=== PATIENT | male | born 1985 | race Caucasian/White ===

== ENCOUNTER 2020-07-03 07:54 | Emergency (ER) | payer BC ==
[~2020-07-03] VITALS: Ht 182.9 cm; Wt 104.3 kg
--- NOTE | 2020-07-03 09:22 | Emergency Department Note ---
History of Present Illnes History of Present Illness Chief Complaint: Abdominal Complaints History of Present Illness This is a 34 year old male Chief Complaint Comment Reports that since 2100 last night he has had abdominal cramping and tightness with nausea and diarrhea, denies vomiting. . Historian: Patient Arrival Mode: Car Onset (how long ago): day(s) (11) Location: periumbilical Quality: cramping Radiation: Denies non-radiation, Denies back, Denies neck, Denies extremity, Denies abdomen, Denies periumbilical, Denies flank, Denies proximal, Denies distal, Denies other Severity: moderate Onset quality: gradual Duration (how long): day(s) (1) Timing of current episode: intermittent Progression: waxing and waning Chronicity: new Context: Denies recent illness, Denies recent surgery, Denies recent immobilization, Denies recent travel, Denies trauma/injury, Denies new medications, Denies hx of DVT/PE, Denies non-compliance w/ medications, Denies other Relieving factors: none Exacerbating factors: none Associated symptoms: Reports denies other symptoms, Reports nausea/vomiting; Denies confusion, Denies chest pain, Denies cough, Denies diaphoresis, Denies fever/chills, Denies headaches, Denies loss of appetite, Denies malaise, Denies rash, Denies seizure, Denies shortness of breath, Denies syncope, Denies weakness, Denies other Treatments prior to arrival: none Past Medical/Family History Physician Review I have reviewed the patient's past medical and family history. Any updates have been documented here. Past Medical History Recent Fever: No Clinical Suspicion of Infectio: No New/Unexplained Change in Ment: No Past Medical History: Hypertension, GERD Past Surgical History: None Social History Smoking Cessation: Never Smoker Counseling Performed: No Alcohol Use: Occasional Any Illegal Drug Use: No Physically hurt or threatened: No Other Any Pre-Existing Lines (PICC,: No Review of Systems Review of Systems Constitutional: Reports no symptoms EENTM: Reports no symptoms Cardiovascular: Reports no symptoms Respiratory: Reports no symptoms Gastrointestinal: Reports as per HPI Genitourinary: Reports no symptoms Musculoskeletal: Reports no symptoms Integumentary: Reports no symptoms Neurological: Reports no symptoms Psychological: Reports no symptoms Endocrine: Reports no symptoms Hematological/Lymphatic: Reports no symptoms Physical Exam Related Data Allergies: Coded Allergies: No Known Allergies (Unverified , 07/03/20) Triage Vital Signs Vital Signs Date Time Temp Pulse Resp B/P (MAP) Pulse Ox O2 Delivery O2 Flow Rate FiO2 07/03/20 08:05 98.0 95 18 130/76 100 Room Air Vital signs reviewed: Yes Physical Exam CONSTITUTIONAL Constitutional: Present well-developed, Present well-nourished HENT HENT: Present normocephalic, Present atraumatic, Present oropharynx clear/moist, Present nose normal HENT L/R: Present left ext ear normal, Present right ext ear normal EYES Eyes: Reports PERRL, Reports conjunctivae normal NECK Neck: Present ROM normal PULMONARY Pulmonary: Present effort normal, Present breath sounds normal CARDIOVASCULAR Cardiovascular: Present regular rhythm, Present heart sounds normal, Present capillary refill normal, Present normal rate GASTROINTESTINAL Abdominal: Present soft, Present bowel sounds normal, Present tender (periumbilical) GENITOURINARY Genitourinary: Present exam deferred SKIN Skin: Present warm, Present dry MUSCULOSKELETAL Musculoskeletal: Present ROM normal NEUROLOGICAL Neurological: Present alert, Present oriented x 3, Present no gross motor or sensory deficits PSYCHOLOGICAL Psychological: Present mood/affect normal, Present judgement normal Results Laboratory Lab results reviewed: Yes Imaging Imaging results reviewed: Yes Assessment & Plan Medical Decision Making MDM appendicitis gastroenteritis Reassessment Reassessment better Assessment & Plan Final Impression: (1) Abdominal pain, acute, generalized (2) Vomiting (3) Diarrhea Depart Disposition: HOME, SELF-CARE Last Vital Signs Date Time Temp Pulse Resp B/P (MAP) Pulse Ox O2 Delivery O2 Flow Rate FiO2 07/03/20 08:05 98.0 95 18 130/76 100 Room Air PATRIZIA RAMIREZ MD Jul 03, 2020 09:22
--- NOTE | 2020-07-03 09:33 | Diagnostic Imaging Report ---
CT of the abdomen and pelvis, without contrast. History: Abdominal pain. Comparison: None available. Technique: Multidetector CT scanning of the abdomen and pelvis was performed from the level of the lung bases to the inferior pubic rami without the use of contrast material. Coronal and sagittal multiplanar reformations were obtained. RADIATION DOSE: Total DLP: 778.23 mGy*cm Dose modulation, iterative reconstruction, and/or weight based adjustment of the mA/kV was utilized to reduce the radiation dose to as low as reasonably achievable. FINDINGS: The visualized intrathoracic contents demonstrate no significant abnormalities. The liver is mildly enlarged measuring 20.6 cm in length. No focal hepatic abnormality is identified on this noncontrast enhanced examination. The gallbladder is unremarkable. There is no biliary ductal dilatation. The spleen is mildly enlarged but otherwise demonstrates an unremarkable noncontrast appearance. The stomach, pancreas, and bilateral adrenal glands demonstrate unremarkable noncontrast appearance. The kidneys are normal in size and location. There is no evidence for nephrolithiasis or hydronephrosis. No ureteral stone or dilatation is appreciated. The urinary bladder is nondistended but appears grossly unremarkable. The prostate demonstrates no significant abnormalities. The abdominal aorta is normal in course and caliber. The IVC is normal in caliber. Please note evaluation of the bowel is limited without the use of enteric contrast material. There is apparent mild circumferential wall thickening noted of the terminal ileum proximal ascending colon. The remaining visualized loops of small and large bowel demonstrate no evidence of obstruction or inflammation. The appendix is visualized and appears unremarkable. There is no ascites or intraperitoneal free air. Scattered normal sized mesenteric lymph nodes are noted, slightly more prominent within the right abdomen. No abnormally enlarged lymph nodes are identified within the abdomen or pelvis by CT size criteria. The osseous structures demonstrate no evidence for acute fracture or destructive process. The extraperitoneal soft tissues are unremarkable. IMPRESSION: Examination limited by lack of intravenous and enteric contrast material demonstrates mild circumferential wall thickening of the terminal ileum and proximal ascending colon. Findings may represent normal peristalsis/underdistention. An enteritis/colitis could have a similar could have a similar appearance. No evidence for bowel obstruction, perforation, or abscess formation. Mild hepatosplenomegaly. Signed by: Dr. Wilfredo Galan MD on 07/03/2020 9:30 AM
[2020-07-03 09:45] VITALS: BP 117/83
== END 2020-07-03 10:00 | disposition home or self-care (01) ==
LOC: FSED 08:16
DX: R10.84 Generalized abdominal pain (principal); R11.0 Nausea; R19.7 Diarrhea, unspecified; I10 Essential (primary) hypertension; K21.9 Gastro-esophageal reflux disease without esophagitis
CPT/HCPCS: 74176; 80053; 80076; 81003; 85025; 99284

== ENCOUNTER → 2021-12-30 | Outpatient (CLI) | payer BC | LOC: US 13:42 | PROVIDERS: ATTEND Family Medicine | DX: R22.41 Localized swelling, mass and lump, right lower limb (principal) | CPT/HCPCS: 76882 ==

== ENCOUNTER 2025-07-24 21:22 | Emergency (ER) | payer BC ==
[~2025-07-24] VITALS: Ht 175.3 cm; Wt 160.1 kg
[2025-07-24 21:52] LABS: BASOPHILS % 0.6 % (0.0-1.0); EOSINOPHILS % 2.4 % (0.0-6.0); LYMPHOCYTES % 23.3 % (18.0-39.1); MONOCYTES % 5.8 % (4.4-11.3); NEUTROPHILS % 67.3 % (38.7-80.0); RED CELL DISTRIBUTION WIDTH 12.4 % (11.7-14.4)
[2025-07-24] MEDS: MAGNESIUM/ALUMINUM/SIMETHICONE 30 ML UDC PO STA (22:28)
[2025-07-24] MEDS: BELLADONNA ALK/PHENOBARBITAL 5 ML UDC PO ONE (22:28)
[2025-07-24] MEDS: LIDOCAINE VISC 2% SOLN 15 ML UDC PO STA (22:29)
[2025-07-24 22:42] LABS: EST GLOMERULAR FILTRATION RATE 89.0 ML/MIN (>=60)
[2025-07-24] MEDS ORDERED: PEPCID20 MG PO (23:11)
[2025-07-24 23:40] VITALS: PULSE 74; RESP 19; TEMP 98.5; O2SAT 96
== END 2025-07-24 23:42 | disposition home or self-care (01) ==
LOC: ER 21:30
DX: R07.89 Other chest pain (principal); K62.5 Hemorrhage of anus and rectum; E66.01 Morbid (severe) obesity due to excess calories; Z68.43 Body mass index [BMI] 50.0-59.9, adult
CPT/HCPCS: 36415; 71045; 80053; 82550; 83690; 83880; 84484; 85025; 93005; 99284